=== PATIENT | male | born 1955 | race Caucasian/White ===

== ENCOUNTER 2018-03-09 13:02 | Emergency (ER) | payer MEDICARE, MEDICAID ==
[~2018-03-09] VITALS: Ht 165.1 cm; Wt 86.0 kg
[2018-03-09 13:15] VITALS: BP 109/58
== END 2018-03-09 15:27 | disposition home or self-care (01) ==
LOC: ER 14:33
DX: S61.012A Laceration without foreign body of left thumb without damage to nail, initial encounter (principal); E11.22 Type 2 diabetes mellitus with diabetic chronic kidney disease; N18.6 End stage renal disease; Z99.2 Dependence on renal dialysis; W26.0XXA Contact with knife, initial encounter; Y93.G3 Activity, cooking and baking; Y92.89 Other specified places as the place of occurrence of the external cause
CPT/HCPCS: 99282